=== PATIENT | female | born 1965 | race Two or more races ===

== ENCOUNTER 2022-08-13 05:50 | Emergency (ER) | payer OTHER ==
[~2022-08-13] VITALS: Ht 160 cm; Wt 65.8 kg
--- NOTE | 2022-08-13 05:50 | NUR ---
c/o right foot pain/swelling x 3 days. denies trauma. Patient is AAOX4. Able to make needs known. Ambulatory. Placed comfortably in bed. Vitals checked.
--- NOTE | 2022-08-13 06:00 | NUR ---
SEEN BY DR SAINI AT BEDSIDE
--- NOTE | 2022-08-13 07:04 | NUR ---
[employer] INSPECT[employer] AT PT'S BEDSIDE
[2022-08-13] MEDS ORDERED: IBUP-1955 PO (08:50)
[2022-08-13] MEDS ORDERED: IBUPROFEN 600 MG TABLET PO ONE (09:00)
[2022-08-13] MEDS ORDERED: IBUPROFEN 600 MG TABLET ONE (09:02)
--- NOTE | 2022-08-13 09:07 | NUR ---
Patient discharged to home in stable condition. Written and verbal after care instructions given. Patient verbalizes understanding of instruction.
[2022-08-13 09:09] VITALS: BP 130/77
== END 2022-08-13 09:10 | disposition home or self-care (01) ==
LOC: ER 05:54
DX: M79.671 Pain in right foot (principal)
CPT/HCPCS: 73630-TC